=== PATIENT | female | born 1995 | race Caucasian/White ===

== ENCOUNTER 2018-07-16 22:26 | Emergency (ER) | payer BC, MEDICAID | END 2018-07-16 23:02 | disposition home or self-care (01) | LOC: ERS 22:26 | DX: O99.89 Other specified diseases and conditions complicating pregnancy, childbirth and the puerperium (principal); N91.2 Amenorrhea, unspecified; O99.341 Other mental disorders complicating pregnancy, first trimester; F41.9 Anxiety disorder, unspecified; F32.9 Major depressive disorder, single episode, unspecified; O99.331 Smoking (tobacco) complicating pregnancy, first trimester | CPT/HCPCS: 99281 ==

== ENCOUNTER 2018-08-16 12:42 | Outpatient (CLI) | payer OTHER, MEDICAID ==
--- NOTE | 2018-08-16 15:30 | ULT ---
3OBSTETRIC ULTRASOUND: Date: 08/16/18 INDICATION: Evaluate anatomy. COMPARISON: None. FINDINGS: There is a single, live intrauterine gestation in transverse presentation, with the head to the mater nal right. The placenta is posterior in location without evidence of previa. OLIVA measures 11.4 cm. Fe adriana heart rate measures 140 beats/minute. Visualized aspects of the head, cerebellum, cisterna magna, lateral ventricle, four chamber hea rt, stomach, kidneys, cord insertion, bladder, spine, lips and nose, and three vessel cord appear wit hin normal limits. Biparietal diameter measured 4.64 cm, giving an estimated gestational age of 20 weeks and 0 days. Head circumference measured 17.62 cm, giving an estimated gestational age of 20 weeks and 1 day Abdominal circumference measured 15.58 cm, giving an estimated gestational age of 20 weeks and 5 days . Femoral length was 3.12 cm, giving an estimated gestational age of 19 weeks and 5 days. The estimated weight is 341 gm, +/- 50 gm. This is approximately 1st percentile based on [place] k. The cervix measured 3.4 cm, without evidence of falling. IMPRESSION: 1. Single, live intrauterine gestation with size and dates as above. Estimated weight is appro ximately the 1st percentile. This may reflect a small for gestational age fetus. Close follow-up is r ecommended. 2. Visualized survey appears within normal limits. The renal pelves bilaterally were slightly prominent measuring approximately 3.8 and 4.1 mm. No melanie pelvocaliectasis evident. This should be r eevaluated in 1-2 weeks for further characterization. POS: RACHELE
== END 2018-08-16 12:43 | disposition home or self-care (01) ==
LOC: SCSULT 12:42
PROVIDERS: ATTEND Nurse Practitioner
DX: O09.92 Supervision of high risk pregnancy, unspecified, second trimester (principal); Z3A.20 20 weeks gestation of pregnancy
CPT/HCPCS: 76805

== ENCOUNTER 2018-08-31 05:30 | Day surgery (SDC) | payer MEDICAID, OTHER ==
[2018-08-31 06:06] VITALS: BMI 32.1
[2018-08-31 06:07] VITALS: BP 128/66; TEMP 98.8
[2018-08-31 06:47] LABS: Bilirubin Negative (Negative); Blood, Urine Negative (Negative); Clarity CLEAR (Clear); Glucose, Urine (Dipstick) Negative (Negative); Leukocyte Negative (Negative); Nitrite Negative (Negative); Protein, Urine (Dipstick) Negative (Neg-Trace); Specific Gravity, Urine 1.021 (1.002-1.036); Urobilinogen 0.2 mg/dL (0.2-1.0)
[2018-08-31 06:49] LABS: #Basophils 0.1 thou/uL (0.0-0.2); #Eosinphils 0.2 thou/uL (0.0-0.7); #Lymphocytes 3.1 thou/uL (1.20-3.40); #Monocytes 1.4 thou/uL (0.11-0.59); #Neutrophils 13.5 thou/uL (1.40-6.50); %Basophils 0.8 % (0.0-1.0); %Eosinophils 1.2 % (0.0-10.0); %Lymphocytes 16.9 % (21.0-51.0); %Monocytes 7.7 % (0.0-10.0); %Neutrophils 73.5 % (42.0-75.0); Hemoglobin 11.6 g/dL (12.0-16.0); Mean Corpuscular HGB CONC 33.9 g/dL (32.0-36.0); Mean Corpuscular Hemoglobin 29.1 pg (27.0-31.0); Mean Corpuscular Volume 85.8 fL (78.0-98.0); Mean Platelet Volume 6.4 fL (7.4-10.4); Platelet Count 352 thou/uL (130-400); RBC Distribution Width 12.5 % (11.5-14.5); White Blood Cell (WBC) Count 18.3 thou/uL (4.8-10.8)
[2018-08-31 07:14] LABS: ALT (SGPT) 11 U/L (8-55); AST (SGOT) 16 U/L (5-34); Albumin 3.5 g/dL (3.5-5.0); Alkaline Phosphatase 60 U/L (40-150); Anion Gap 12 mmol/L (10-20); BUN (Urea Nitrogen) 8 mg/dL (7.0-18.7); Bilirubin, Total Less than 0.2 mg/dL (0.2-1.2); Calc. Creatinine Clearance 185 mL/min (70-130); Calcium 9.9 mg/dL (7.8-10.44); Carbon Dioxide 20 mmol/L (22-29); Chloride 105 mmol/L (98-107); Estimated GFR-MDRD Greater than 90; Globulin 3.1 g/dL (2.4-3.5); Glucose 92 mg/dL (70-105); Potassium 3.3 mmol/L (3.5-5.1); Protein, Total 6.6 g/dL (6.0-8.3); Sodium 134 mmol/L (136-145)
--- NOTE | 2018-08-31 07:41 | HP ---
REGULAR PHYSICIAN: Deuce Hart MD EVALUATING PHYSICIAN: Jadiel Gómez MD CHIEF COMPLAINT: Abdominal pain and dizziness at home. HISTORY OF PRESENT ILLNESS: Ms. Carpenter is a 23-year-old white, G3, P0 with an estimated date of confinement of 01/02/2019, who presents complaining of mid abdominal pain around her umbilicus accompanied by intermittent dizziness noted early this morning at home. She denies nausea, vomiting, fever, chills, or change in bowel or bladder habits. She has seen Dr. Hart and has had two visits with him. PAST OBSTETRICAL HISTORY: Includes two early miscarriages, neither requiring D and C. PAST MEDICAL HISTORY: None. PAST SURGICAL HISTORY: Includes I and D of a groin abscess. CURRENT MEDICATIONS: vitamins. ALLERGIES: LATEX. SOCIAL HISTORY: She smokes approximately half a pack of cigarettes per day. She has used methamphetamines in the past. FAMILY HISTORY: Unremarkable. REVIEW OF SYSTEMS: She denies nausea, vomiting, fever, chills, ruptured membranes, or vaginal bleeding. PHYSICAL EXAMINATION: VITAL SIGNS: Blood pressure is 128/66, pulse is 95, and temperature 98.8. On room air, she shows 97% saturation. ABDOMEN: Soft and nontender. There is no guarding or rebound. PELVIS: At this time, pelvic exam is deferred. heart tones are noted. No uterine contractions are seen on the monitor. ASSESSMENT: 1. 22 and 2/7th weeks by her dates. 2. Mid abdominal pain. 3. Dizziness. PLAN: CBC, Chem-20, urinalysis, and drug screen have been obtained. We will review those results when they return. Job ID: [id number]
[2018-08-31 08:16] LABS: Amphetamine Not Detected (NotDetected); Barbiturates Screen Not Detected (NotDetected); Benzodiazepine Screen Not Detected (NotDetected); Cocaine Metabolite Screen Not Detected (NotDetected); Medtox Control Line Valid? VALID (VALID); Medtox Reader # READER 4; Methadone Not Detected (NotDetected); Methamphetamine Not Detected (NotDetected); Opiate Screen Not Detected (NotDetected); Oxycodone Screen Not Detected (NotDetected); Phencyclidine (PCP) Not Detected (NotDetected); THC/Cannabinoid Screen Not Detected (NotDetected); Tricyclic Screen Not Detected (NotDetected)
== END 2018-08-31 08:59 | disposition home or self-care (01) ==
LOC: L&D/OP 05:30
PROVIDERS: ATTEND Family Medicine
DX: O99.89 Other specified diseases and conditions complicating pregnancy, childbirth and the puerperium (principal); R10.33 Periumbilical pain; R42 Dizziness and giddiness; O99.332 Smoking (tobacco) complicating pregnancy, second trimester; F17.210 Nicotine dependence, cigarettes, uncomplicated; Z3A.22 22 weeks gestation of pregnancy; Z79.899 Other long term (current) drug therapy; Z91.040 Latex allergy status
CPT/HCPCS: 36415; 80053; 80306; 81003; 85025; 99282

== ENCOUNTER 2018-10-14 17:56 | Emergency (ER) | payer OTHER | END 2018-10-14 18:52 | disposition home or self-care (01) | LOC: ERS 17:56 | DX: O99.89 Other specified diseases and conditions complicating pregnancy, childbirth and the puerperium (principal); R59.0 Localized enlarged lymph nodes; O99.343 Other mental disorders complicating pregnancy, third trimester; F41.9 Anxiety disorder, unspecified; F32.9 Major depressive disorder, single episode, unspecified; O99.333 Smoking (tobacco) complicating pregnancy, third trimester; F17.210 Nicotine dependence, cigarettes, uncomplicated; Z3A.30 30 weeks gestation of pregnancy | CPT/HCPCS: 99283 ==

== ENCOUNTER 2018-11-19 00:51 | Day surgery (SDC) | payer OTHER, MEDICAID ==
[2018-11-19 01:41] VITALS: BMI 34.0
--- NOTE | 2018-11-19 02:08 | PDOC.LDHP ---
Labor and Delivery H&P Chief complaint: abdominal pain HPI: 23 y/o at unsure GA but believed to be 33w5d based on previous notes, patient of Dr. Hart, presents with intermittent abdominal pain that resolved upon arrival tonight. Also has having some FM earlier this evening but now feeling significant movement. Denies VB, LOF or other concerns. ROS neg for HEENT, CV, pulm, GI, , neuro, psych, skin, musculoskeletal, or constitutional symptoms other than mentioned above. OB History Details: 2 prior SAB Past Medical History: None Current medications: pre-luis antonio vitamins Previous surgical history: other (I&D of spider bite) Allergies/Adverse Reactions: Allergies Allergy/AdvReac Type Severity Reaction Status Date / Time Latex, Natural Rubber Allergy Rash Verified 11/19/18 01:34 Social history: tobacco use (2-3 cigarettes per day), drug use (hx amphetamines) - Physical Exam Vital signs reviewed and normal: yes General: NAD, resting Lungs: nonlabored breathing Abdomen: gravid Extremeties: no edema FHT: category 1 (130s, mod variability, + accels, no decels (area of maternal capture noted)) [place] contractions every: None - Vaginal Exam cm dilated: 0 Effacement: 0% Station: -3 - Assessment 23 y/o at 33w5d with no e/o PTL. status reassuring with reactive NST. - Plan -: D/c home with precautions. Is scheduled to see Dr. Hart later today and advised to keep that appointment.
== END 2018-11-19 02:10 | disposition home or self-care (01) ==
LOC: L&D/OP 00:51
PROVIDERS: ATTEND Family Medicine
DX: O99.89 Other specified diseases and conditions complicating pregnancy, childbirth and the puerperium (principal); R10.9 Unspecified abdominal pain; O36.8130 Decreased fetal movements, third trimester, not applicable or unspecified; O99.333 Smoking (tobacco) complicating pregnancy, third trimester; F17.210 Nicotine dependence, cigarettes, uncomplicated; O99.323 Drug use complicating pregnancy, third trimester; F15.90 Other stimulant use, unspecified, uncomplicated; Z87.59 Personal history of other complications of pregnancy, childbirth and the puerperium; Z91.040 Latex allergy status; Z3A.33 33 weeks gestation of pregnancy
CPT/HCPCS: 99282

== ENCOUNTER 2018-12-24 22:28 | Day surgery (SDC) | payer OTHER, MEDICAID ==
[2018-12-24 23:01] VITALS: BMI 37.4
[2018-12-24 23:28] LABS: Amnisure Test No Membranes Rupture (No Rupture)
[2018-12-24 23:29] LABS: Amnisure Internal Control QC ACCEPTABLE (ACCEPTABLE)
[2018-12-24] MEDS ORDERED: hydrALAZINE 20 MG/ML VIAL SLOW IVP PRN (23:41)
--- NOTE | 2018-12-25 00:24 | PRG ---
DATE OF SERVICE: TIME OF SERVICE: 2334 PRESENTING COMPLAINT: Possible rupture of membranes at 37 to 38 weeks. HISTORY OF PRESENT ILLNESS: The patient is a G2, P0, 38-2/7 weeks. She thought she had a gush of fluid earlier this evening. She reports an active fetus. Denies vaginal bleeding. 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 Blood type A positive, antibody negative. Pap negative. Rubella immune. B strep negative. SHILPI of 01/05/2019. PAST MEDICAL HISTORY: None. PAST SURGICAL HISTORY: None. ALLERGIES: DENIES. MEDICATIONS: vitamins. SOCIAL: Positive history of methamphetamine and marijuana use. PHYSICAL EXAMINATION: GENERAL: White female, in no acute distress. VITAL SIGNS: Initial blood pressure was 140/82. Subsequent blood pressures were less than 135/80, temperature 98.5, respirations 18, and pulse 85. HEENT: Within normal limits. LUNGS: Clear to auscultation bilaterally. HEART: Regular rate and rhythm. ABDOMEN: Soft and nontender. No rebound or guarding. Fundal height 38 cm. FHTs 140s. Vulva without lesions. VAGINA: Without discharge. Cervical exam by RN 350, -2, but lots of these cephalic, bag of water intact. EXTREMITIES: No clubbing, cyanosis, or edema. LABORATORY DATA: AmniSure was performed. Test result was negative. heart rate tracing was obtained for greater than 30 minutes, which revealed a category 1 strip. IMPRESSION: Thirty-eight weeks, mildly elevated blood pressure upon presentation but resolution to non-worrisome blood pressures without evidence of rupture of membranes. PLAN: Discharge home. Keep scheduled followup with Dr. Hart. ISADORA barajas. Job ID: [id number]
== END 2018-12-24 23:54 | disposition home or self-care (01) ==
LOC: L&D/OP 22:28
PROVIDERS: ATTEND Family Medicine
DX: O99.89 Other specified diseases and conditions complicating pregnancy, childbirth and the puerperium (principal); N89.8 Other specified noninflammatory disorders of vagina; Z3A.38 38 weeks gestation of pregnancy
CPT/HCPCS: 84112; 99283

== ENCOUNTER 2019-01-01 12:47 | Inpatient (IN) | payer OTHER, MEDICAID ==
[~2019-01-01 12:47] MED LIST: ePHEDrine/0.9% NaCl/PF SYRINGE 50 mg/10 ml ONE
[2019-01-01] MEDS: Lactated Ringer's 1,000 ML IV SCH ×2 (13:18→20:49)
[2019-01-01] MEDS ORDERED: Ondansetron PF 4 MG/2 ML Vial IVP PRN (13:48)
[2019-01-01] MEDS ORDERED: Carboprost 250 MCG/ML AMP IM PRN (13:48)
[2019-01-01] MEDS ORDERED: hydrALAZINE 20 MG/ML VIAL SLOW IVP PRN (13:48)
[2019-01-01] MEDS ORDERED: Methylergonovine 0.2 MG/ML VIAL IM PRN (13:48)
[2019-01-01] MEDS ORDERED: Ibuprofen 800 MG TAB PO PRN (13:48)
[2019-01-01] MEDS ORDERED: Lidocaine 1% (PF) 30 ML VIAL SC PRN (13:48)
[2019-01-01] MEDS ORDERED: Misoprostol 200 MCG TAB PR PRN (13:48)
[2019-01-01] MEDS ORDERED: NS / Oxytocin 40 units/1000ml 1,000 ML IV PRN (13:48)
[2019-01-01] MEDS ORDERED: Diphenoxylate HCl/Atropine Tablet PO PRN (13:48)
[2019-01-01] MEDS ORDERED: Promethazine HCl 25 MG/ML VIAL IM PRN (13:48)
[2019-01-01] MEDS ORDERED: HYDROcodone/Acetaminophen 5/325 mg Tablet PO PRN (13:48)
[2019-01-01] MEDS ORDERED: NS w/ Oxytocin 10 units 500 ML IV SCH (14:00)
[2019-01-01 14:14] LABS: Hemoglobin 11.4 g/dL (12.0-16.0); Mean Corpuscular HGB CONC 33.9 g/dL (32.0-36.0); Mean Corpuscular Hemoglobin 27.6 pg (27.0-31.0); Mean Corpuscular Volume 81.4 fL (78.0-98.0); Mean Platelet Volume 8.1 fL (7.4-10.4); Platelet Count 252 thou/uL (130-400); RBC Distribution Width 13.6 % (11.5-14.5); Red Blood Cell (RBC) Count 4.14 mill/uL (4.20-5.40); White Blood Cell (WBC) Count 11.3 thou/uL (4.8-10.8)
[2019-01-01] MEDS: NS w/ Oxytocin 10 units 500 ML IV SCH (14:24)
[2019-01-01 14:40] VITALS: BMI 38.1
[2019-01-01 14:58] LABS: HBSAg Index 0.19 S/CO (0-0.99); Hep B Surf Ag Non-Reactive S/CO (NonReactive); Syphilis Antibody Nonreactive (Nonreactive); Syphilis Antibody Index 0.05 S/CO (<1.00 Non-Reactive)
[2019-01-01] MEDS: Butorphanol Tartrate 1 MG/ML VIAL SLOW IVP PRN ×3 (17:42→20:09)
[2019-01-01] MEDS ORDERED: Lidocaine 1.5%/Epinephrine 1:200,000 5 ML AMPUL IJ ONE (20:17)
[2019-01-01] MEDS ORDERED: Fentanyl 4 mcg/Bup 0.1% Cadd 100 ML ONE (20:18)
[2019-01-01] MEDS ORDERED: Bupivacaine/Epinephrine 0.25% 30 ML VIAL ONE (23:00)
[2019-01-01] MEDS ORDERED: Bupivacaine HCl 0.5%/Epinephrine 1:200,000/PF 30 ml Vial ONE (23:00)
[2019-01-02] MEDS ORDERED: Fentanyl 4 mcg/Bup 0.1% Cadd 100 ML ONE (03:11)
[2019-01-02] MEDS: Lactated Ringer's 1,000 ML IV SCH (03:15)
[2019-01-02] MEDS ORDERED: NS / Oxytocin 40 units/1000ml 1,000 ML ONE (04:18)
[2019-01-02] MEDS ORDERED: Lidocaine 1% (PF) 30 ML VIAL ONE (04:18)
[2019-01-02] MEDS: NS w/ Oxytocin 10 units 500 ML IV SCH (05:43)
[2019-01-02] MEDS ORDERED: MORPHINE 5 MG/10 ML PF VIAL ONE (06:26)
[2019-01-02] MEDS ORDERED: Ondansetron PF 4 MG/2 ML Vial ONE ×2 (06:27→11:37)
[2019-01-02] MEDS ORDERED: Oxytocin 10 UNITS/ML VIAL ONE (06:27)
[2019-01-02] MEDS ORDERED: ePHEDrine/0.9% NaCl/PF SYRINGE 50 mg/10 ml ONE (06:37)
[2019-01-02] MEDS ORDERED: Lidocaine 2% 10 ML INJ ONE (06:37)
[2019-01-02] MEDS ORDERED: Azithromycin 500 MG VIAL ONE (06:43)
[2019-01-02] MEDS ORDERED: PHENYLEPHRINE-NS 100 MCG/ML 10 ML SYRINGE ONE ×2 (06:45→11:37)
[2019-01-02] MEDS ORDERED: Methylergonovine 0.2 MG/ML VIAL ONE (06:50)
[2019-01-02 07:23] LABS: Analyzer IN Cardio OR
[2019-01-02] MEDS ORDERED: Ketorolac Tromethamine 30 MG/ML VIAL ONE ×2 (07:25→11:37)
[2019-01-02] MEDS ORDERED: diphenhydrAMINE 50 MG/ML VIAL IVP PRN (07:31)
[2019-01-02] MEDS ORDERED: Naloxone HCl 0.4 mg/ml Vial IVP PRN ×2 (07:31)
[2019-01-02] MEDS ORDERED: Promethazine HCl 25 MG SUPP PR PRN (07:31)
[2019-01-02] MEDS ORDERED: Promethazine HCl 25 MG/ML VIAL IM PRN ×2 (07:31→07:46)
[2019-01-02] MEDS ORDERED: Naloxone HCl 0.4 mg/ml Vial IV PRN (07:31)
[2019-01-02] MEDS ORDERED: Ondansetron PF 4 MG/2 ML Vial IVP PRN ×2 (07:31→07:46)
[2019-01-02] MEDS ORDERED: Communication Order-Pharmacy FS SCH (07:45)
[2019-01-02] MEDS ORDERED: Bisacodyl 10 MG SUPP PR PRN (07:46)
[2019-01-02] MEDS ORDERED: NS / Oxytocin 40 units/1000ml 1,000 ML IV SCH (07:46)
[2019-01-02] MEDS ORDERED: diphenhydrAMINE 25 MG CAP PO PRN (07:46)
[2019-01-02] MEDS ORDERED: Meperidine HCl/PF 25 MG/ML VIAL IM PRN (07:46)
[2019-01-02] MEDS ORDERED: Adacel (T-DAP) 0.5 ML SYRINGE IM ONE (07:46)
[2019-01-02] MEDS ORDERED: Simethicone Chewable 80 MG TAB PO PRN (07:46)
[2019-01-02] MEDS ORDERED: hydrALAZINE 20 MG/ML VIAL SLOW IVP PRN (07:46)
[2019-01-02] MEDS ORDERED: Lanolin Ointment 7 GM TUBE TOP PRN (07:46)
[2019-01-02] MEDS: Ferrous Sulfate 325 MG TAB PO SCH ×2 (10:24→16:35)
[2019-01-02] MEDS: Prenatal Vitamin 1 TAB PO SCH (10:24)
[2019-01-02] MEDS: Docusate Calcium (SURFAK) 240 MG CAP PO SCH ×2 (10:24→20:19)
[2019-01-02] MEDS: Ketorolac Tromethamine 30 MG/ML VIAL IVP PRN ×2 (16:15→23:16)
[2019-01-02 17:29] LABS: Bilirubin Negative (Negative); Blood, Urine 2+ (Negative); Clarity Clear (Clear); Glucose, Urine (Dipstick) Normal (Negative); Leukocyte 500 Leu/uL (Negative); Nitrite Negative (Negative); Protein, Urine (Dipstick) 30 mg/dL (Neg-Trace); RBC/HPF Greater than 50 HPF (0-3); Squamous Epithelial 0-3 HPF (0-3); Urobilinogen Normal mg/dL (Less than 2); WBC/HPF 21-50 HPF (0-3)
[2019-01-02 17:30] LABS: Bacteria/HPF 1+ HPF (None Seen)
[2019-01-02] MEDS ORDERED: Lactated Ringer's 1,000 ML IV SCH (22:15)
[2019-01-02] MEDS ORDERED: Sodium Chloride 0.9% 500 ML IV SCH (22:30)
[2019-01-02] MEDS: cefTRIAXone\\ROCEPHIN 2 GM in Sodium Chloride 0.9% 100 ML IVPB SCH (23:15)
[2019-01-03 06:49] LABS: Hemoglobin 9.3 g/dL (12.0-16.0); Mean Corpuscular HGB CONC 34.2 g/dL (32.0-36.0); Mean Corpuscular Hemoglobin 28.5 pg (27.0-31.0); Mean Corpuscular Volume 83.5 fL (78.0-98.0); Mean Platelet Volume 7.6 fL (7.4-10.4); Platelet Count 212 thou/uL (130-400); RBC Distribution Width 13.5 % (11.5-14.5); Red Blood Cell (RBC) Count 3.25 mill/uL (4.20-5.40); White Blood Cell (WBC) Count 16.3 thou/uL (4.8-10.8)
[2019-01-03] MEDS: Docusate Calcium (SURFAK) 240 MG CAP PO SCH ×2 (08:56→21:17)
[2019-01-03] MEDS: Prenatal Vitamin 1 TAB PO SCH (08:56)
[2019-01-03] MEDS: Ferrous Sulfate 325 MG TAB PO SCH ×2 (08:56→16:55)
[2019-01-03] MEDS: Ibuprofen 800 MG TAB PO SCH ×3 (08:59→22:36)
[2019-01-03] MEDS: HYDROcodone/Acetaminophen 5/325 mg Tablet PO PRN ×2 (11:27→18:06)
[2019-01-03] MEDS: cefTRIAXone\\ROCEPHIN 2 GM in Sodium Chloride 0.9% 100 ML IVPB SCH (22:36)
[2019-01-04] MEDS: HYDROcodone/Acetaminophen 5/325 mg Tablet PO PRN ×3 (01:14→17:58)
[2019-01-04] MEDS: Ibuprofen 800 MG TAB PO SCH ×3 (05:37→21:42)
[2019-01-04] MEDS: Docusate Calcium (SURFAK) 240 MG CAP PO SCH ×2 (09:22→21:42)
[2019-01-04] MEDS: Ferrous Sulfate 325 MG TAB PO SCH ×2 (09:22→17:53)
[2019-01-04] MEDS: Prenatal Vitamin 1 TAB PO SCH (09:22)
[2019-01-05] MEDS: cefTRIAXone\\ROCEPHIN 2 GM in Sodium Chloride 0.9% 100 ML IVPB SCH (01:49)
[2019-01-05] MEDS: HYDROcodone/Acetaminophen 5/325 mg Tablet PO PRN ×2 (02:37→10:11)
[2019-01-05] MEDS: Ibuprofen 800 MG TAB PO SCH ×2 (05:58→14:31)
[2019-01-05 08:47] VITALS: BP 132/82; TEMP 98.5
[2019-01-05] MEDS: Ferrous Sulfate 325 MG TAB PO SCH ×2 (09:02→17:38)
[2019-01-05] MEDS: Docusate Calcium (SURFAK) 240 MG CAP PO SCH (09:02)
[2019-01-05] MEDS: Prenatal Vitamin 1 TAB PO SCH (09:02)
--- NOTE | 2019-01-07 09:19 | OP ---
DATE OF PROCEDURE: 01/02/2019 PREOPERATIVE DIAGNOSES: 1. A 39-week . 2. Arrest of dilation. POSTOPERATIVE DIAGNOSES: 1. A 39-week . 2. Arrest of dilation. PROCEDURE PERFORMED: Primary low cervical transverse section. DESK EDITOR: Dr. Mcknight. DESCRIPTION OF PROCEDURE: After informed consent was obtained from the patient, she was taken to the operating room, where her epidural was re-dosed. She was then prepped and draped in the usual sterile fashion. Once anesthesia was confirmed to be adequate, a Pfannenstiel incision was created with a #10 scalpel blade and carried down to the fascia. The fascia was nicked in the midline and the fascial incision was extended transversely with Shaw scissors. The superior fascial segment was grasped with Donnie's and elevated and the underlying rectus muscles were dissected free first bluntly and then sharply with the Shaw scissors. This was repeated with the inferior fascial segment. The rectus muscles were divided in the midline with blunt dissection. The peritoneum was entered with blunt digital dissection as well. Bladder blade was inserted. The uterus was entered in a low-transverse fashion with a clean #10 scalpel blade and the hysterotomy was extended superolaterally with blunt dissection. Clear amniotic fluid was encountered. vertex delivered onto the operative field followed by the remainder of the infant in an atraumatic fashion. The oropharynx and nares were bulb suctioned. Cord was clamped after 30 seconds and ligated and a vigorous male infant was handed off to the staff in attendance. Cord blood was obtained. The placenta delivered with traction. The uterus was exteriorized and freed of clots and debris that was repaired with a running locking suture of 0 Vicryl in a single full-thickness layer followed by a series of interrupted [id number] sutures also of 0 Vicryl. There was some mild uterine atony noted after delivery and Methergine x1 was given intraoperatively. The abdomen was irrigated copiously with approximately 1 L of saline. The uterus was then returned to the abdomen. Hemostasis was again observed. The rectus muscles were inspected for bleeding sites and none were seen. The peritoneum was repaired with a running suture of 3-0 Vicryl. The fascia was repaired with a running suture of 0 PDS. Three interrupted sutures of 3-0 Vicryl were placed in the subdermal layer to reapproximate the skin, which was closed with skin domenica. Sponge and instrument counts were correct x4. She tolerated the procedure well and suffered no acute complications. She was taken to recovery in stable condition. to the nursery in stable condition. FINDINGS: Viable male , Apgars 9 and 9 at one and five minutes respectively. Weight 7 pounds and 7 ounces. COMPLICATIONS: Mild uterine atony, resolved with Methergine x1 only. ESTIMATED BLOOD LOSS: 600. Job ID: [id number]
== END 2019-01-05 18:30 | disposition home or self-care (01) | DRG 788 ==
LOC: L&D-LIB 12:47 → L&D 14:29 → 3SW 01-02 09:39
PROVIDERS: ADMIT Family Medicine; ATTEND Family Medicine
PROC: 10D00Z1 Extraction of Products of Conception, Low, Open Approach (ICD-10-PCS; principal; 2019-01-02)
PROC: 10907ZC Drainage of Amniotic Fluid, Therapeutic from Products of Conception, Via Natural or Artificial Opening (ICD-10-PCS; 2019-01-02)
PROC: 3E0P7VZ Introduction of Hormone into Female Reproductive, Via Natural or Artificial Opening (ICD-10-PCS; 2019-01-02)
PROC: 3E033VJ Introduction of Other Hormone into Peripheral Vein, Percutaneous Approach (ICD-10-PCS; 2019-01-02)
DX: O77.0 Labor and delivery complicated by meconium in amniotic fluid (principal); O62.1 Secondary uterine inertia; O61.0 Failed medical induction of labor; O32.4XX0 Maternal care for high head at term, not applicable or unspecified; Z3A.39 39 weeks gestation of pregnancy; Z37.0 Single live birth
CPT/HCPCS: 36415; 51702; 81001; 82805; 85027; 86780; 86850; 86900; 86901; 87086; 87340; J0360; J0456; J0595; J0670; J0690; J0696; J1200; J1885; J2001; J2210; J2274; J2405; J2590; J3490; Q0163

== ENCOUNTER 2019-02-08 21:13 | Emergency (ER) | payer OTHER, MEDICAID | END 2019-02-08 22:13 | disposition home or self-care (01) | LOC: SCSER 21:13 | DX: N63.20 Unspecified lump in the left breast, unspecified quadrant (principal); N63.10 Unspecified lump in the right breast, unspecified quadrant; F41.9 Anxiety disorder, unspecified; F32.9 Major depressive disorder, single episode, unspecified; F17.210 Nicotine dependence, cigarettes, uncomplicated; Z79.899 Other long term (current) drug therapy | CPT/HCPCS: 99283 ==